=== PATIENT | male | born 1960 ===

== ENCOUNTER 2022-11-20 13:05 | Day surgery (SDC) | payer OTHER ==
[~2022-11-20] VITALS: Ht 170.2 cm; Wt 77.4 kg
== END 2022-11-20 15:07 | disposition home or self-care (01) ==
LOC: ORSCSDS 13:05
PROVIDERS: Ophthalmology
PROC: 08DJ3ZZ Extraction of Right Lens, Percutaneous Approach (ICD-10-PCS; principal; 2022-11-20 14:30)
DX: H25.13 Age-related nuclear cataract, bilateral (principal); H11.002 Unspecified pterygium of left eye
CPT/HCPCS: J2001; J2250; J3010; J3301; J7040; V2632